=== PATIENT | female | born 1955 | race Caucasian/White ===

== ENCOUNTER → 2016-10-26 | Outpatient (CLI) | payer BC ==
--- NOTE | 2016-10-26 14:28 | REPMRS ---
Patient History The patient states she had a clinical breast exam in 10/25 No known family history of cancer. Benign stereotactic core biopsy of the right breast, 1997. Digital Woman Screen Mammo: October 26, 2016 - Exam #: [id number] Bilateral CC and MLO view(s) were taken. Technologist: Ariella Ricardo, Technologist Prior study comparison: October 20, 2015, digital woman screen mammo performed at [facility]. October 16, 2014, digital woman screen mammo performed at [facility]. October 15, 2013, digital woman screen mammo performed at [facility]. FINDINGS: There are scattered fibroglandular densities. There has been no change in the appearance of the mammogram from the prior studies. There is a mild amount of scattered fibroglandular density which is fairly symmetric. There is no interval development of dominant mass, architectural distortion, or clustered microcalcification suggestive of malignancy. ASSESSMENT: BI-RADS/ACR category 1 mammogram. Negative. Recommendation Routine screening mammogram in 1 year (for women over age 40). This mammogram was interpreted with the aid of an FDA-approved computer-aided dectection system. Electronically Signed By: Mathieu Ott MD 10/26/16 [id number]
== END ==
LOC: M WHC 13:01
PROVIDERS: ATTEND Nurse Practitioner Family
DX: Z12.31 Encounter for screening mammogram for malignant neoplasm of breast (principal)

== ENCOUNTER → 2017-10-27 | Outpatient (CLI) | payer BC | LOC: M WHC 13:05 | DX: Z12.31 Encounter for screening mammogram for malignant neoplasm of breast (principal) | CPT/HCPCS: 77067 ==

== ENCOUNTER 2019-01-22 10:21 | Day surgery (SDC) | payer BC ==
[~2019-01-22] VITALS: Ht 162.6 cm; Wt 94.8 kg
[~2019-01-22 10:21] MED LIST: ALEV220T22 PO; CELE1CAP4 PO; FURO40TA2 PO; HYDR-643 PO; K-TA1TAB PO; LEVO112T2 PO; NS 1,000 ML IV ONE; OMEP40CA2 PO; PRAV10TA3 PO
[2019-01-22] MEDS ORDERED: PROPOFOL 200 MG/20 ML VIAL As Ordered ONE (13:16)
[2019-01-22] MEDS ORDERED: LIDOCAINE 2% INJ 100 MG/5 ML SDV (FOR ANES.) As Ordered ONE (13:16)
--- NOTE | 2019-01-22 13:43 | ROOR ---
Patient Name: Sharon Lehman Procedure Date: 01/22/2019 1:25 PM Date of : 1955 Age: 63 Room: [facility] Gender: Female Note Status: Finalized Procedure: Upper Endoscopy + Biopsies Indications: Heartburn, Exclusion of Arellano's esophagus Providers: Chase Gleason MD Referring MD: Carly Hemphill NP Requesting Provider: Medicines: Monitored Anesthesia Care Complications: No immediate complications. Procedure: Pre-Anesthesia Assessment: - The heart rate, respiratory rate, oxygen saturations, blood pressure, adequacy of pulmonary ventilation, and response to care were monitored throughout the procedure. The Endoscope was introduced through the mouth, and advanced to the second part of duodenum. The upper GI endoscopy was accomplished without difficulty. The patient tolerated the procedure well. Findings: The Z-line was irregular and was found 35 cm from the incisors. Multiple biopsies were obtained with cold forceps for evaluation to rule out Arellano's Esophagus randomly at the gastroesophageal junction. A small hiatal hernia was present. No other significant abnormalities were identified in a careful examination of the stomach. The exam of the duodenum was otherwise normal. Impression: - Z-line irregular, 35 cm from the incisors. - Small hiatal hernia. - Multiple biopsies were obtained at the gastroesophageal junction. - The examination was otherwise normal. Recommendation: - Patient has a contact number available for emergencies. The signs and symptoms of potential delayed complications were discussed with the patient. Return to normal activities tomorrow. Written discharge instructions were provided to the patient. - High fiber diet. - Discharge patient to home. - Follow an antireflux regimen. - Continue present medications. - Await pathology results. - Telephone GI clinic for pathology results in 1 week. - Return to referring physician. - The findings and recommendations were discussed with the patient's family. Chase Gleason MD Chase Gleason MD 01/22/2019 1:42:53 PM Electronically signed by Chase Gleason MD Number of Addenda: 0 Note Initiated On: 01/22/2019 1:25 PM Estimated Blood Loss: Estimated blood loss: none.
--- NOTE | 2019-01-22 14:00 | ROOR ---
Patient Name: Sharon Lehman Procedure Date: 01/22/2019 1:26 PM Date of : 1955 Age: 63 Room: [facility] Gender: Female Note Status: Finalized Procedure: Total Colonoscopy to Cecum + Cold Snare Polypectomy Indications: Screening for colorectal malignant neoplasm Providers: Chase Gleason MD Referring MD: Carly Hemphill NP Requesting Provider: Medicines: Monitored Anesthesia Care Complications: No immediate complications. Procedure: Pre-Anesthesia Assessment: - The heart rate, respiratory rate, oxygen saturations, blood pressure, adequacy of pulmonary ventilation, and response to care were monitored throughout the procedure. The Colonoscope was introduced through the anus and advanced to the cecum, identified by appendiceal orifice and ileocecal valve. The colonoscopy was performed without difficulty. The patient tolerated the procedure well. The quality of the bowel preparation was excellent. Findings: The perianal and digital rectal examinations were normal. Non-bleeding internal hemorrhoids were found during retroflexion. The hemorrhoids were small and Grade I (internal hemorrhoids that do not prolapse). A small polyp was found at 10 cm proximal to the anus. The polyp was sessile. The polyp was removed with a cold snare. Resection and retrieval were complete. Scattered small-mouthed diverticula were found in the recto-sigmoid colon, sigmoid colon and descending colon. The exam was otherwise without abnormality on direct and retroflexion views. Impression: - Non-bleeding internal hemorrhoids. - One small polyp at 10 cm proximal to the anus, removed with a cold snare. Resected and retrieved. - Diverticulosis in the recto-sigmoid colon, in the sigmoid colon and in the descending colon. - The examination was otherwise normal on direct and retroflexion views. - The exam was otherwise normal to the cecum. Recommendation: - Patient has a contact number available for emergencies. The signs and symptoms of potential delayed complications were discussed with the patient. Return to normal activities tomorrow. Written discharge instructions were provided to the patient. - High fiber diet. - Discharge patient to home. - Continue present medications. - Await pathology results. - Telephone GI clinic for pathology results in 1 week. - Repeat colonoscopy in 10 years for surveillance. - Return to referring physician. - Check Portal Online for Path Results.([email or web address]) - The findings and recommendations were discussed with the patient's family. Chase Gleason MD Chase Gleason MD 01/22/2019 2:00:20 PM Electronically signed by Chase Gleason MD Number of Addenda: 0 Note Initiated On: 01/22/2019 1:26 PM Estimated Blood Loss: Estimated blood loss: none.
[2019-01-22 14:15] VITALS: BP 136/95
== END 2019-01-22 14:25 | disposition home or self-care (01) ==
LOC: M OPP 10:21
PROVIDERS: ATTEND Internal Medicine Gastroenterology
DX: K64.0 First degree hemorrhoids (principal); K63.5 Polyp of colon; K57.30 Diverticulosis of large intestine without perforation or abscess without bleeding; K22.8 Other specified diseases of esophagus; K44.9 Diaphragmatic hernia without obstruction or gangrene; R12 Heartburn; Z12.11 Encounter for screening for malignant neoplasm of colon; Z79.899 Other long term (current) drug therapy; Z88.8 Allergy status to other drugs, medicaments and biological substances

== ENCOUNTER → 2019-05-11 | Outpatient (CLI) | payer BC ==
[~2019-05-11] MED LIST changes: -NS 1,000 ML IV ONE; -OMEP40CA2 PO; +OMEP40CA97 PO; +PROHANCE 279.3MG/ML 15ML VIAL (A9576) As Ordered ONE; +PROHANCE 279.3MG/ML 5ML VIAL (A9576) As Ordered ONE
--- NOTE | 2019-05-11 13:06 | REP ---
Bilateral breast MRI study without and with IV gadolinium: History: History of lobular carcinoma in situ. High risk screening. Comparison MRI study October 27, 2017. Status post bilateral breast reduction April 21, 2018. Technique: Three Sharita MRI imaging was performed with a dedicated breast coil. Axial, coronal, and sagittal T1 and T2-weighted scans were obtained with and without fat saturation in the usual fashion. The study includes dynamically acquired post gadolinium enhanced imaging subtraction imaging. Maximal intensity projection and multiplanar re-formation imaging is included as well. The study was interpreted with the aid of [employer], an FDA approved computer-aided detection (CAD) software program, on a dedicated breast MRI work station. The gadolinium enhancement dose is 19 ml of intravenous ProHance. Findings: There is no evidence of axillary lymphadenopathy or significant breast cystic change. There is a small cyst in the left breast in micrometallic artifact visible anteriorly and inferiorly status post reduction mammoplasty bilaterally. No suspicious morphologic abnormality is seen on high-resolution pre and postcontrast T1 and T2 weighted scans. There is mild fibroglandular pattern in each breast. Mild background parenchymal enhancement is seen. Dynamically acquired sequential post contrast images show no suspicious focus of parenchymal enhancement and/or washout in either breast to suggest malignancy. There is a small area of enhancement surrounding the sub-centimeter fat lobule in the superior aspect of the right breast consistent with postoperative change, fat necrosis. Subtraction images show no additional abnormality. Impression: BIRADS category II benign findings. Consider annual screening breast MRI scanning in addition to screening mammography. Electronically Signed by Peng Ott MD 05/11/2019 01:14 P
== END ==
LOC: M RAD 09:42
PROVIDERS: ATTEND Nurse Practitioner Family
DX: Z86.000 Personal history of in-situ neoplasm of breast (principal); Z91.89 Other specified personal risk factors, not elsewhere classified
CPT/HCPCS: A9576; C8908

== ENCOUNTER → 2020-01-22 | Outpatient (CLI) | payer BC ==
[~2020-01-22] MED LIST changes: -PROHANCE 279.3MG/ML 15ML VIAL (A9576) As Ordered ONE; -PROHANCE 279.3MG/ML 5ML VIAL (A9576) As Ordered ONE
== END ==
LOC: M PLALAB 12:45
PROVIDERS: ATTEND Nurse Practitioner Family
DX: Z13.79 Encounter for other screening for genetic and chromosomal anomalies (principal)

== ENCOUNTER → 2020-01-22 | Outpatient (CLI) | payer BC ==
--- NOTE | 2020-01-24 23:57 | REP ---
BILATERAL MAMMOGRAM WITH 3D TOMOSYNTHESIS, LEFT BREAST ULTRASOUND: CLINICAL HISTORY: Left breast pain 6 o'clock for 6 months. Sister breast cancer age 81. Tyrer-zick lifetime risk of breast cancer 5.2%. COMPARISON: Mammogram 10/13/2018, 10/27/2017, and 10/26/2016. MLO and CC views of left breast performed with 3D tomosynthesis. Mild scattered fibroglandular tissue is present. Volpara breast density is B. I see no mass or clustered microcalcifications bilaterally. Real-time sonographic evaluation of left breast performed inferiorly at 6 o'clock at the site of reported pain. No cystic or solid nodule is seen. IMPRESSION: ACR 1, negative. No mass or clustered microcalcifications. There is no mammographic or sonographic evidence of mass at 6 o'clock left breast in the region of pain. Followup mammogram recommended in 1 year. BIRADS 1: BI-RADS/ACR category 1 mammogram. Negative Mammogram. This mammogram was interpreted with the aid of an FDA-approved computer-aided detection system. The patient states she/he had a clinical breast exam in 01/2020. The patient letter being requested is M2.
== END ==
LOC: M WHC 10:50
PROVIDERS: ATTEND Nurse Practitioner Family
DX: Z12.31 Encounter for screening mammogram for malignant neoplasm of breast (principal)

== ENCOUNTER → 2021-02-17 | Outpatient (CLI) | payer MEDICARE ==
[~2021-02-17] MED LIST changes: +OMEP40CA4 PO; -OMEP40CA97 PO
--- NOTE | 2021-02-17 16:09 | REPMRS ---
Patient History The patient states she had a clinical breast exam in February 2021. Family history of breast cancer at age 82 in sister. Reductions of both breasts, 2019. Benign stereotactic core biopsy of the right breast, 1997. Patient states no breast complaints today. Patient has signed MRS History Sheet. Digital Woman Screen Mammo: February 17, 2021 - Exam #: [id number] Bilateral CC and MLO view(s) were taken. Technologist: Ariella Ricardo, Technologist Prior study comparison: January 22, 2020, diagnostic bilateral mammo performed at [facility]. October 13, 2018, left breast diagnostic unilateral mammo, performed at Dr. Edilson Ambrosio [facility]. October 27, 2017, digital woman screen mammo performed at [facility]. FINDINGS: The breast tissue is almost entirely fat. The Volpara volumetric breast density category is: A. There is a 1 cm oil cyst versus small lipoma again noted in the left breast laterally unchanged. There has been no change in the appearance of the mammogram from the prior studies. There is no interval development of dominant mass, architectural distortion, or grouped microcalcification typical of malignancy. 3-D tomosynthesis shows no additional findings. Assessment: BI-RADS/ACR category 2 mammogram. Benign Findings. Recommendation Routine screening mammogram of both breasts in 1 year (for women over age 40). This patient's [facility] Lifetime Breast Cancer RIsk is estimated at 9.1 %. This mammogram was interpreted with the aid of an FDA-approved computer-aided dectection system. Electronically Signed By: Mathieu Ott MD 02/17/21 [id number]
== END ==
LOC: M WHC 14:05
PROVIDERS: ATTEND Advanced Practice Midwife
DX: Z01.419 Encounter for gynecological examination (general) (routine) without abnormal findings (principal); Z12.31 Encounter for screening mammogram for malignant neoplasm of breast; Z86.000 Personal history of in-situ neoplasm of breast; Z80.3 Family history of malignant neoplasm of breast; Z98.890 Other specified postprocedural states
CPT/HCPCS: 77063; 77067; G0101

== ENCOUNTER → 2022-06-15 | Outpatient (REF) | payer MEDICARE | LOC: M PLALAB 16:12 | PROVIDERS: ATTEND Advanced Practice Midwife | DX: B37.32 Chronic candidiasis of vulva and vagina (principal); Z53.9 Procedure and treatment not carried out, unspecified reason ==

== ENCOUNTER → 2022-06-15 | Outpatient (CLI) | payer MEDICARE | LOC: M WHC 14:52 | PROVIDERS: ATTEND Advanced Practice Midwife | DX: Z12.31 Encounter for screening mammogram for malignant neoplasm of breast (principal) ==

== ENCOUNTER → 2023-12-15 | Outpatient (CLI) | payer MEDICARE | LOC: M WHC 08:24 | PROVIDERS: ATTEND Advanced Practice Midwife | DX: Z12.31 Encounter for screening mammogram for malignant neoplasm of breast (principal) ==

== ENCOUNTER → 2025-05-02 | Outpatient (CLI) | payer MEDICARE ==
[~2025-05-02] MED LIST changes: -PRAV10TA3 PO; +PRAV10TA43 PO
== END ==
LOC: M WHC 10:47
PROVIDERS: ATTEND Advanced Practice Midwife
DX: Z12.31 Encounter for screening mammogram for malignant neoplasm of breast (principal); R92.323 Mammographic fibroglandular density, bilateral breasts